=== PATIENT | male | born 1965 ===

== ENCOUNTER 2018-04-17 10:05 | Day surgery (SDC) | payer MEDICAID ==
[2018-04-08 11:16] VITALS: BMI 23.6
[2018-04-17] MEDS ORDERED: Midazolam 2 MG/2 ML VIAL ONE (12:26)
[2018-04-17] MEDS ORDERED: Propofol 10 mg/ml Inj (20 ML) ONE (12:26)
[2018-04-17] MEDS ORDERED: Lidocaine PF 2% (5 ml) Inj (For Cardiac Arrhy) ONE (12:27)
[2018-04-17] MEDS ORDERED: Bupivacaine 0.5% Inj(30mL) ONE (12:42)
[2018-04-17] MEDS ORDERED: Lidocaine 1% Inj (20ml) ONE (12:42)
[2018-04-17] MEDS ORDERED: Oxycodone/Acetaminophen 5/325 mg Tab PO PRN ×2 (13:22)
[2018-04-17] MEDS ORDERED: HYDROmorphone 0.5 mg/0.5 ml ISec IVP PRN (13:22)
--- NOTE | 2018-04-17 13:28 | PCM.SURG1 ---
Surgeon's Initial Post Op Note - Surgeon's Notes Surgeon: Dr. Owens, DPM Warp Dresser: Dr. John Cedeno, PGY2, Dr. Johnson Phillips PGY1 Type of Anesthesia: IV Sedation, Local Anesthesia Administered By: Dr. Jake MD Pre-Operative Diagnosis: Left Foot Kaur's Neuroma Operative Findings: see dictation. I: 20 cc 1:1 1% Lidocaine, 0.5% Marcaine. Material: 3-0 Monocryl Post-Operative Diagnosis: same Operation Performed: Left Foot Decompression of nerve Specimen/Specimens Removed: none Estimated Blood Loss: EBL {In ML}: 1 Blood Products Given: N/A Drains Used: No Drains Post-Op Condition: Good Date of Surgery/Procedure: 04/17/18 Time of Surgery/Procedure: 13:28
[2018-04-17] MEDS ORDERED: Lactated Ringer's 1,000 ML IV SCH (13:30)
[2018-04-17 15:16] VITALS: RESP 20; TEMP 97.7
[2018-04-17 15:54] VITALS: BP 119/79; PULSE 68; O2SAT 100
--- NOTE | 2018-04-21 12:48 | OP ---
Copied To: John Cedeno DPM Attending MD: Dakota Duong DPM PROCEDURE DATE: 04/17/2018 PREOPERATIVE DIAGNOSIS: Left foot Kaur neuroma. POSTOPERATIVE DIAGNOSIS: Left foot Kaur neuroma. PROCEDURE PERFORMED: Left foot third interspace common digital nerve decompression. SURGEON: Dakota Duong DPM. ASSISTANTS: John Cedeno DPM, PGY-2; Johnson Phillips MD, PGY-1. ANESTHESIOLOGIST: Dr. Joseph. ANESTHESIA: IV sedation with local injection. INDICATION: The patient is a 53-year-old male with the above diagnosis. The patient is being treated by Dr. Duong in his office on an outpatient basis where he has exhausted multiple forms of conservative treatment options including but not limited to padding, strapping, at home physical therapy, stretching exercises, wide toe box shoe, injections and oral antiinflammatories. The patient seeks surgical intervention at this time. All its risks and benefits and possible complications of proposed procedure have been explained to the patient at a greater length. The patient verbalizes understanding and wished to proceed with the procedure. All questions were answered. No guarantees were given nor implied. Consent was signed and n.p.o. status was confirmed prior to bringing the patient to the Operating Room. OPERATIVE PROCEDURE: The patient was brought into the Operating Room and placed on the Operating Room table in supine position. Well padded pneumatic ankle tourniquet was applied. Once IV sedation was achieved, local injection of 20 mL of 1:1 mixture of 1% lidocaine plain to 0.5% Marcaine plain was introduced in a local block type fashion to the left forefoot. Once the local anesthesia as achieved, the foot was then prepped and draped in normal sterile manner and the procedure began. DESCRIPTION OF PROCEDURE: The left foot third interspace common digital nerve decompression. Attention was directed to the left foot third interspace where an incision was planned out using a marking pen. The incision was made within the third interspace of the left foot between the metatarsal head/digit 3 and 4 using a #15 blade. The incision was approximately the length of 2.5 cm long. Incision was then deepened through the subcutaneous tissue down to the level of the deep transverse metatarsal ligament using sharp and blunt dissection using curved hemostat. Care was taken to identify and retract all vital neurovascular structures. At this time, using a curved hemostat, deep transverse metatarsal ligament was felt from dorsal to plantar as well as plantar to dorsal. The ligament was strung like a guitar string to make sure the integrity of the ligament. The deep transverse metatarsal ligament was felt to be extremely tight between the metatarsal 3 and 4. At this time, curved scissors were utilized to incise the deep transverse metatarsal ligament within the third interspace to decompress the nerve giving the symptoms that the patient has been experiencing. Once the ligament was incised, the range of motion between the third and fourth metatarsal as well as third and fourth digit was felt to be loose. At this time, the surgical site was irrigated using copious amount of sterile saline. The surgical site was then re-approximated using 3-0 Monocryl suture. The surgical site within the third interspace was noted to be fully intact after the skin closure. The surgical site was then sterilely dressed using Xeroform, sterile 4x4 and Kerlix. The pneumatic ankle tourniquet was deflated after 15 minutes with vascular return to the foot. POSTOPERATIVE CONDITION: The patient tolerated the anesthesia and the procedure well and was escorted to the Recovery Room with vital signs stable and neurovascular status intact to his left foot. The patient will remain full weightbearing in a surgical shoe to the left lower extremity. All of the postoperative instructions were provided prior to taking the patient to the OR. The patient will follow up with Dr. Duong in his office within 1 week. John Cedeno DPM Dakota Duong DPM [facility]
== END 2018-04-17 15:50 | disposition home or self-care (01) ==
LOC: SDS 10:05
PROVIDERS: ATTEND Podiatrist Foot & Ankle Surgery
DX: G57.62 Lesion of plantar nerve, left lower limb (principal)
CPT/HCPCS: 64702; J0690; J1170; J1885; J2250; J2405; J2704; J2765; J3010; J7120 ×2